=== PATIENT | male | born 1970 | race Caucasian/White ===

== ENCOUNTER 2016-03-14 10:51 | Emergency (ER) | payer OTHER, MEDICAID ==
[~2016-03-14 10:51] MED LIST: IBUPROFEN 600 MG TAB PO SCH
[2016-03-14 11:11] VITALS: RESP 16
[2016-03-14] MEDS ORDERED: ONDANSETRON DISINTEGRATING 4 MG TAB PO ONE (12:11)
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
[2016-03-14 12:42] VITALS: BP 132/88
--- NOTE | 2016-03-14 12:45 | DX ---
Right Foot - 3 views Indication: Pain. Possible frostbite second toe. Technique: AP, oblique, and lateral views. Comparison: Right foot series dated January 05, 2016 Findings: The normally mineralized bones are anatomically aligned. No osteolysis, erosions, or perios teal reaction. Joint spaces are all well preserved. Minimal sclerosis of the bipartite lateral sesamo id bone along the first metatarsal and small erosions along the medial aspect of the first metatarsal head are unchanged. Impression: 1. Negative. No evidence of ostial lysis second toe. 2. Minimal degenerative arthropathy the first metatarsophalangeal joint is unchanged.
[2016-03-14] MEDS ORDERED: OXYCODONE/APAP 5/325MG PREPACK#4 BTL TAKEHOME ONE (13:15)
[2016-03-14 14:25] VITALS: PULSE 81; TEMP 98.1; O2SAT 94
== END 2016-03-14 14:24 | disposition home or self-care (01) ==
LOC: EDUNIT#
DX: M79.674 Pain in right toe(s) (principal)

== ENCOUNTER 2016-12-05 12:58 | Emergency (ER) | payer OTHER, MEDICAID ==
[2016-12-05 13:07] VITALS: TEMP 98.1
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
[2016-12-05 15:28] VITALS: BP 118/97; PULSE 92; RESP 14; O2SAT 96
== END 2016-12-05 15:29 | disposition home or self-care (01) ==
DX: S59.912A Unspecified injury of left forearm, initial encounter (principal); Z85.47 Personal history of malignant neoplasm of testis; V13.4XXA Pedal cycle driver injured in collision with car, pick-up truck or van in traffic accident, initial encounter; Y92.410 Unspecified street and highway as the place of occurrence of the external cause; Y93.55 Activity, bike riding
CPT/HCPCS: 73090; 99283; L3980

== ENCOUNTER → 2017-03-22 | Outpatient (CLI) | payer OTHER, MEDICAID | LOC: FIMAGING 17:43 | DX: Z11.1 Encounter for screening for respiratory tuberculosis (principal) ==

== ENCOUNTER 2017-04-08 14:03 | Emergency (ER) | payer OTHER, MEDICAID ==
[2017-04-08] MEDS ORDERED: NS 1,000 ML IV ONE ×3 (14:18→14:20)
[2017-04-08] MEDS ORDERED: ETOMIDATE 40 MG/20 ML INJ IVP ONE (14:19)
[2017-04-08] MEDS ORDERED: ROCURONIUM 100 MG/10 ML VIAL IVP ONE (14:19)
[2017-04-08] MEDS ORDERED: TDAP ADULT 0.5 ML INJ (BOOSTRIX) IM ONE (14:19)
[2017-04-08] MEDS ORDERED: PROPOFOL/EMULSION 50 ML IV ONE (14:19)
[2017-04-08] MEDS ORDERED: fentaNYL 100 MCG/2 ML INJ IVP ONE ×4 (14:22→17:00)
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
[2017-04-08 14:30] LABS: PLATELET COUNT 306 10^3/uL (150-400)
[2017-04-08 14:37] LABS: INR 0.99 (0.83-1.16); PROTIME(PATIENT) 13.3 SEC (12.0-15.0)
[2017-04-08] MEDS ORDERED: HYDROXOCOBALAMIN IV ONE (14:54)
[2017-04-08 15:07] VITALS: O2SAT 98
[2017-04-08] MEDS ORDERED: fentaNYL/NACL 100 ML IV SCH (15:36)
[2017-04-08] MEDS ORDERED: LORazepam 2 MG/ML INJ IVP ONE (15:40)
[2017-04-08] MEDS ORDERED: PROPOFOL/EMULSION 1,000 MG/100 ML BOTTLE IV ONE (16:10)
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
[2017-04-08] MEDS ORDERED: fentaNYL 100 MCG/2 ML INJ ONE (17:28)
[2017-04-08 18:36] VITALS: BP 162/118; PULSE 80; RESP 12; TEMP 96.4
== END 2017-04-08 17:30 | disposition short-term general hospital (02) ==
LOC: EDUNIT#
PROC: 0BH17EZ Insertion of Endotracheal Airway into Trachea, Via Natural or Artificial Opening (ICD-10-PCS; principal; 2017-04-08)
DX: T23.302A Burn of third degree of left hand, unspecified site, initial encounter (principal); T22.221A Burn of second degree of right elbow, initial encounter; T20.22XA Burn of second degree of lip(s), initial encounter; T23.301A Burn of third degree of right hand, unspecified site, initial encounter; Z23 Encounter for immunization; X02.0XXA Exposure to flames in controlled fire in building or structure, initial encounter
CPT/HCPCS: 31500; 70450; 71045; 71250; 72125; 72128; 72131; 74176; J2060; J2704; J3010; 80305; 96365; G0480

== ENCOUNTER → 2017-12-22 | Outpatient (CLI) | payer OTHER, MEDICAID | LOC: FIMAGING 14:42 | PROVIDERS: ATTEND Surgery | DX: S60.456A Superficial foreign body of right little finger, initial encounter (principal) ==